=== PATIENT | female | born 1945 | race Caucasian/White ===

== ENCOUNTER → 2022-08-09 12:58 | Outpatient (BNVA) | payer MEDICARE, OTHER, SELFPAY | PROVIDERS: Visit Provider Physician Assistant | DX: M48.061 Spinal stenosis, lumbar region without neurogenic claudication (principal) | CPT/HCPCS: 99202 ==

== ENCOUNTER 2022-10-13 07:22 | Outpatient (REF) | payer MEDICARE, OTHER, SELFPAY ==
--- NOTE | ~2022-10-13 | XR_ITS ---
EXAMINATION: XR KNEE, RIGHT CLINICAL INFORMATION: Right knee pain. COMPARISON: MRI right knee 08/14/2022. TECHNIQUE: Three views of the right knee. FINDINGS: Mild bicompartmental degenerative changes are present with most narrowing seen in the lateral compartment with some sclerosis and mild lateral tibial plateau osteophyte formation. Some mild undulation is present on the posterior patella with a tiny joint effusion. The medial compartment is well preserved. No joint effusion is seen. Marked vascular calcifications are noted. XR/XR knee RT 3V IMPRESSION: Mild bicompartmental degenerative changes with small joint effusion.
== END 2022-10-13 07:23 | disposition home or self-care (01) ==
LOC: HO.HOSX 07:22
PROVIDERS: Visit Provider Orthopaedic Surgery
DX: S83.241A Other tear of medial meniscus, current injury, right knee, initial encounter (principal)
CPT/HCPCS: 73562; 99202

== ENCOUNTER 2022-10-13 13:59 | Outpatient (AMB) | payer MEDICARE, OTHER, SELFPAY ==
--- NOTE | 2022-10-13 14:15 | A.OFFVIS_ITS ---
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 States she sat in a chair that put pressure on her knee on February. Reports she felt pain when she stood up and her pain increased when she applied pressure on knee. The patient denies any pain in her right knee prior to that twisting injury. She has done physical therapy for 12 weeks over the last 6 months which aggravated her pain. She has also had multiple injections in the past. The most recent injection gave her minimal relief. She has tried Tylenol and anti-inflammatory medicines which gave her only mild relief. She states that her right knee will give out several times per day. Of note, the patient is due to undergo her 2nd low back surgery on 10/17/2022. Allergies Penicillin Allergy (Unknown, Uncoded 09/30/22 10:44) Unknown Medication List - Last Reconciled 10/13/22 by Dhaval Huddleston MD alirocumab (Praluent Pen) 75 mg subcut Q2W amlodipine 10 mg PO DAILY aspirin 81 mg PO 4XW atorvastatin 10 mg PO BEDTIME cholecalciferol (vitamin D3) (Vitamin D3) 50 mcg PO DAILY diphenoxylate-atropine 2.5-0.025 mg 1 tab PO DAILY enalapril maleate 20 mg PO BID fluoxetine 10 mg PO QNOON hydrocortisone-iodoquinol 1-1 % appl topical PRN lorazepam 0.5 mg PO DAILY PRN metoprolol succinate ER 25 mg PO BEDTIME multivitamin 1 tab PO DAILY tramadol 25 - 50 mg PO BID PRN vitamin A-vitamin C-vit E-min 1 tab PO 4XW vitamins A,C,F-jzoj-zittfm 2,148 mcg-113 mg-45 mg-17.4mg (PreserVision AREDS) 2 tabs PO DAILY PFSH Medical History (Updated 10/13/22 @ 14:36 by Dhaval Huddleston MD) Arthritis Asthma Cough COVID-19 Depression Diarrhea Elevated cholesterol GERD (gastroesophageal reflux disease) HTN (hypertension) PVD (peripheral vascular disease) Renal artery stenosis Rheumatoid arthritis Spinal stenosis Wet senile macular degeneration Surgical History (Updated 09/30/22 @ 11:05 by Deb Gil RN) History of carotid endarterectomy History of eyelid surgery History of facelift History of hysterectomy History of lumbar fusion Hx of breast reduction, elective Hx of cholecystectomy Social History Are you a primary healthcare liaison to a significant other at home: No Do you presently have visiting nurse or other home services: No Patient Tobacco Use Status: Never used Tobacco Physical Exam Vital Signs: BMI result Body Mass Index 29.2 Const Other: Well-nourished well-developed very friendly female awake alert and oriented x3 in no acute distress Extrem Other: Bilateral lower extremity examination shows good capillary refill, no skin lesions noted, normal sensation light touch Right knee examination shows a mild effusion, mild crepitus with range of motion, tenderness along her medial and lateral joint lines, positive Daniele's test, no instability Results Reviewed Results Reviewed: X-rays of the patient's right knee taken today show mild to moderate diffuse zbigniew nt space narrowing, no acute bony abnormalities MRI of the patient's right knee shows moderate diffuse degenerative changes as well as tearing of her medial and lateral menisci and thickened plica Assessment & Plan Assessment & Plan (1) Tear of medial meniscus of right knee: Code(s): S83.241A - Other tear of medial meniscus, current injury, right knee, initial encounter Plan Ms. Lovett presents with progressively worsening right knee pain and mec hanical symptoms due to early degenerative joint disease as well as tearing of her medial and lateral menisci and plica syndrome. I had a lengthy discussion with the patient regarding the treatment options. At this point she appears to be failing continued non operative treatments. The risks and benefits of right knee arthroscopic surgery were discussed at length with the patient. The patient is considering undergoing right knee arthroscopic surgery later this year. That surgery will most likely involve right knee diagnostic arthroscopy with partial medial and lateral meniscectomies, chondroplasty and plica excision. She will follow up with me once she has recovered from her low back surgery. She will contact me prior to that time should any questions or concerns arise. Feel free to call me at any time should questions regarding her orthopedic management arise. Thank you very much for asking me to see this very friendly patient. I spent 22 minutes in reviewing the patient's records and imaging studies, seeing the patient and documenting in the medical record. Orders: Orders XR knee RT 3V Today M25.561 - Pain in right knee Coding Level of Care Code New Pt Level 2 (07409) Diagnoses Tear of medial meniscus of right knee S83.241A
[2022-10-13 14:27] VITALS: BMI 29.2
== END 2022-10-13 14:35 | disposition home or self-care (01) ==
PROVIDERS: PCP Internal Medicine; Visit Provider Orthopaedic Surgery
DX: S83.241A Other tear of medial meniscus, current injury, right knee, initial encounter (principal)
CPT/HCPCS: 99202

== ENCOUNTER 2022-10-17 06:19 | Inpatient (IN) | payer MEDICARE, OTHER, SELFPAY ==
[2022-10-03 12:24] VITALS: BP 140/62; PULSE 68; RESP 16; O2SAT 96; BMI 30.2
--- NOTE | 2022-10-03 12:37 | HO.ANESPROP2 ---
HPI - Anesthesia Eval Consult details Narrative: 77yo F for L2-L3 Transkambin Lumbar Interbody Fusion No recent illness No CP/SOB with seated aerobics and light weights daily Mild asthma only. Asymptomatic except with extreme weather. No inhaler rx GERD - diet controlled PVD s/p L CEA 2018. [facility] Active Problems Active Problems: All Active Problems (Updated 10/03/22 @ 12:16 by Deb Gil RN) Lumbar stenosis (Acute) Knee pain (Acute) Past Medical History Medical History Arthritis Asthma Cough COVID-19 Depression Diarrhea Elevated cholesterol GERD (gastroesophageal reflux disease) HTN (hypertension) PVD (peripheral vascular disease) Renal artery stenosis Rheumatoid arthritis Spinal stenosis Wet senile macular degeneration Family History Family history of problems with anesthesia: No Surgical History Surgical History History of carotid endarterectomy History of eyelid surgery History of facelift History of hysterectomy History of lumbar fusion Hx of breast reduction, elective Hx of cholecystectomy History of Problems with Anesthesia: No (distant hx of PONV) Social History Social History Household Members: None Housing: House Are you a primary manager medicare marketing to a significant other at home: No Do you presently have visiting nurse or other home services: No Patient Tobacco Use Status: Never used Tobacco Use of substances other than those prescribed or required for medical reasons: No Have you been hit, kicked, punched, or otherwise hurt by someone within the past year? If so, by whom?: No Do you feel safe in your current relationship?: Yes Is there a partner from a previous relationship who is making you feel unsafe now?: No Are you made to feel afraid or neglected: No Are you DNR?: No Advance Directives: No Advance Directives Information Provided: No Advance Directives on File: No Do you have thoughts of harming others: None Do you have a plan to hurt others: No Plan Recently lost weight without trying: No Eating poorly because of decreased appetite: No Nutrition Risks: No Nutritional Risk Patient : No : No Poor oral hygiene: No Meds Allergies Allergy/AdvReac Type Severity Reaction Status Date / Time Penicillin Allergy Mild Hives Uncoded 10/17/22 06:23 Home Medications Medication Instructions Recorded Confirmed Last Taken Type alirocumab 75 mg/mL subcutaneous 75 mg subcut Q2W 08/09/22 10/17/22 10/03/22 History pen injector (Praluent Pen) amlodipine 10 mg tablet 10 mg PO DAILY 08/09/22 10/17/22 10/17/22 History diphenoxylate-atropine 2.5 1 tab PO DAILY 08/09/22 10/17/22 10/17/22 History mg-0.025 mg tablet enalapril maleate 20 mg tablet 20 mg PO BID 08/09/22 10/17/22 10/17/22 History 10 mg fluoxetine 10 mg capsule 10 mg PO QNOON 08/09/22 10/17/22 10/17/22 History hydrocortisone 1 %-iodoquinol 1 % 1 appl topical DAILY PRN Itching 08/09/22 10/17/22 10/16/22 History topical cream lorazepam 0.5 mg tablet 0.5 mg PO DAILY PRN Anxiety 08/09/22 10/17/22 10/03/22 History metoprolol succinate 25 mg 25 mg PO BEDTIME 08/09/22 10/17/22 10/16/22 History tablet,extended release 24 hr tramadol 50 mg tablet 25 - 50 mg PO BID PRN pain 08/09/22 10/17/22 10/15/22 History aspirin 81 mg tablet,delayed 81 mg PO 4XW 09/30/22 10/17/22 10/10/22 History release atorvastatin 10 mg tablet 10 mg PO BEDTIME 09/30/22 10/17/22 10/16/22 History multivitamin 1 tab PO DAILY 09/30/22 10/17/22 10/15/22 History vitamin A-vitamin C-vit E-min 1 tab PO 4XW 09/30/22 10/17/22 10/14/22 History tablet cholecalciferol (vitamin D3) 50 50 mcg PO DAILY 10/03/22 10/17/22 10/14/22 History mcg (2,000 unit) capsule (Vitamin D3) Exam Exam Date and Time: October 03, 2022 1237 Height,Weight and Vital Signs: Height 5 ft 4 in Weight 79.832 kg Last Vital Signs Pulse 68 10/03/22 12:24 Resp 16 10/03/22 12:24 BP 140/62 H 10/03/22 12:24 Pulse Ox 96 10/03/22 12:24 O2 Del Method Room Air 10/03/22 12:24 Pertinent Lab Results Pertinent Lab Results: CBC and BMP from outside facility 06/2022 all WNL Narrative Narrative: EKG 09/2022 Vent. Rate : 062 BPM ? ? Atrial Rate : 062 BPM ?? P-R Int : 138 ms? QRS Dur : 076 ms ? ? QT Int : 408 ms ? ? ? P-R-T Axes : 067 -11 -09 degrees ?? QTc Int : 414 ms ? Normal sinus rhythm Normal ECG No previous ECGs available ? Airway Mallampati Class: III (Small mouth) TM Dist: >3cm Neck ROM: Limited Loose/Missing/Broken Teeth: No (crowned molars) Heart: RRR Lungs: CTAB Assessment and Plan Assessment Anesthesia Assessment: Anesthesia Plan Discussed, Smoking Cess. Discussed and PAT Visit Final Anesthetic Review Family History of Problems with Anesthesia: No History of Problems with Anesthesia: No (distant hx of PONV)
[2022-10-17] VITALS (13 sets, daily range): BP systolic 124–145; BP diastolic 50–75; PULSE 57–72; RESP 14–20; TEMP 35.4–36.9; O2SAT 94–100; BMI 29.2
--- NOTE | ~2022-10-17 | FL_ITS ---
EXAMINATION: XR FLUOROSCOPY WITH IMAGES CLINICAL INFORMATION: L2-L3 lumbar interbody fusion. COMPARISON: None available. TECHNIQUE: Fluoroscopy Supervised By: Lauren. Fluoroscopy Time: 0.6 minutes. Cumulative Dose: 41 mGy. DAP: 0.6 Gycm2. Images: 4. FINDINGS: Images demonstrate posterior fusion hardware in the lumbar spine with rods and bilateral transpedicular screws and disc prosthesis. There is interbody fusion seen at the next more inferior level. FL/FL guidance in OR IMPRESSION: Fluoroscopy guidance for lumbar fusion.
--- OUTSIDE RECORDS SUMMARY | 2022-10-17 06:21 | XMS_ITS | Continuity of Care Document ---
Author Name Unknown Organization [facility] Address [address] [place] [id number]- Care Team Providers Care Opener Name Role Phone Tamera Hunt MD Primary Care Physician Encounter [facility] Date(s): 08/16/22 - 08/23/22 [facility] [address] [place] [id number] [[email or web address]] Attending Physician: Jono Andino MD Admitting Physician: Jono Andino MD Referring Physician: Tamera Hunt MD Allergies, Adverse Reactions, Alerts Substance Reaction Severity Status penicillins Active narcotic analgesics Active Medications amLODIPine 5 mg oral tablet 1 tablet = 5 mg, By Mouth, Daily, 0 Refills, Maintenance, 02/14/22 16:20:00 EST, Partial fill upon patient request if the prescription is for a schedule II opioid drug. Start Date: 02/14/22 Status: Ordered aspirin 81 mg oral tablet 1 tablet = 81 mg, By Mouth, Daily, 0 Refills, Maintenance, 07/09/18 9:24:12 EDT Start Date: 07/09/18 Status: Ordered atropine-diphenoxylate 0.025 mg-2.5 mg oral tablet Refills 0, Maintenance, 07/09/18 9:22:09 EDT Start Date: 07/09/18 Status: Ordered CoQ10 1 capsule, By Mouth, Daily, 0 Refills, Maintenance, 07/09/18 9:25:04 EDT Start Date: 07/09/18 Status: Ordered enalapril 20 mg oral tablet 0 Refills, Maintenance, 07/09/18 9:21:38 EDT Start Date: 07/09/18 Status: Ordered Hydrochlorothiazide = 12.5 mg, By Mouth, Daily, 0 Refills, Maintenance, 12/05/19 10:46:11 EST Start Date: 03/07/19 Status: Ordered Icaps AREDS 1 capsule, By Mouth, Daily, 0 Refills, Maintenance, 07/09/18 9:24:46 EDT Start Date: 07/09/18 Status: Ordered K2 Plus D3 0 Refills, Maintenance, 03/07/19 10:46:41 EST Start Date: 03/07/19 Status: Ordered Lomotil Liquid By Mouth, 4 times a day, 0 Refills, Maintenance, 03/07/19 10:46:35 EST Start Date: 03/07/19 Status: Ordered Magnesium Oxide By Mouth, 0 Refills, Maintenance, 03/07/19 10:46:52 EST Start Date: 03/07/19 Status: Ordered Metoprolol Succinate ER 25 mg oral tablet, extended release 1 tablet = 25 mg, 0 Refills, Maintenance, 02/14/22 16:21:00 EST, Partial fill upon patient request if the prescription is for a schedule II opioid drug. Start Date: 02/14/22 Status: Ordered Metoprolol Succinate ER 25 mg oral tablet, extended release 1 tablet = 25 mg, By Mouth, Daily, 0 Refills, Maintenance, 02/14/22 16:23:00 EST, Partial fill uponpatient request if the prescription is for a schedule II opioid drug. Start Date: 02/14/22 Status: Ordered Multivitamin Daily, 0 Refills, Maintenance, 07/09/18 9:25:50 EDT Start Date: 07/09/18 Status: Ordered Praluent Pen 75 mg/mL subcutaneous solution = 75 mg, Subcutaneous Infusion, every other week, 0 Refills, Maintenance, 02/14/22 16:20:00 EST, Partial fill upon patient request if the prescription is for a schedule II opioid drug. Start Date: 02/14/22 Status: Ordered PROzac 10 mg oral capsule 10 mg, 1, capsule, By Mouth, Daily, Refills 0, Maintenance, 07/09/18 9:23:59 EDT Start Date: 07/09/18 Status: Ordered [place] Oil By Mouth, several days a week, 0 Refills, Maintenance, 07/09/18 9:25:22 EDT Start Date: 07/09/18 Status: Ordered Vitamin D3 = 2,000 International_Units, By Mouth, Daily, 0 Refills, Maintenance, 07/09/18 9:24:30 EDT Start Date: 07/09/18 Status: Ordered Social History Social History Type Response Smoking Status Never (less than 100 in lifetime) entered on: 03/07/19 Sex Note * Ana Bea: PERFORM, SIGN, VERIFY Event Display: Patient Education/Instruction Authored Date: [id number] [facility] *[facility] [address] Clinical Summary Name TONG FORRESTER Age 77 Years 1945 PCP Marilee BUTLER , Tamera Alvarez PCP Visit Date 08/16/2022 06:36:00 Additional Instructions: Scheduled Appointments?? Future Appointments ?No Future Appointments Scheduled Follow-Up Instructions ?? Diagnosis Medications: Please continue your medications until treatment is completed or stopped by your provider. Discuss any questions related to medications with your provider. Medications to Continue with No Changes These medications were not printed or sent to your pharmacy alirocumab (Praluent Pen 75 mg/mL subcutaneous solution) 75 Milligram Subcutaneous Infusion. every other week. Next Dose: Amlodipine (amLODIPine 5 mg oral tablet) 1 tab(s) Oral Daily. Next Dose: Aspirin (aspirin 81 mg oral tablet) 1 tab(s) Oral Daily. Next Dose: Atropine / Diphenoxylate (atropine-diphenoxylate 0.025 mg-2.5 mg oral tablet) Next Dose: Atropine / Diphenoxylate (Lomotil Liquid) Oral 4 times a day. Next Dose: Cholecalciferol (Vitamin D3) 2,000 International Unit Oral Daily. Next Dose: Enalapril (enalapril 20 mg oral tablet) Next Dose: Fluoxetine (PROzac 10 mg oral capsule) 1 capsule Oral Daily. Next Dose: Hydrochlorothiazide 12.5 Milligram Oral Daily. Next Dose: Magnesium Oxide Oral. Next Dose: Metoprolol (Metoprolol Succinate ER 25 mg oral tablet, extended release) 1 tab(s). Next Dose: Metoprolol (Metoprolol Succinate ER 25 mg oral tablet, extended release) 1 tab(s) Oral Daily. Next Dose: Multivitamin Daily. Next Dose: Multivitamin (K2 Plus D3) Next Dose: Multivitamin With Minerals (Icaps AREDS) 1 capsule Oral Daily. Next Dose: Roberta-3 Polyunsaturated Fatty Acids ([place] Oil) Oral. several days a week. Next Dose: Ubiquinone (CoQ10) 1 capsule Oral Daily. Next Dose: Allergy Info:?? narcotic analgesics; penicillins Medications Given This Visit Future Orders ?No future orders Vital Signs Height Weight BMI Blood Pressure / Temperature Pulse Rate Respiratory Rate 02 Sat Mode of Delivery / You can now view a summary of your hospital visit from the comfort of your home through a free online portal called [employer]. [employer] is a website that allows you to securely view your medical information including discharge summary, medications and follow-up visits. ??You can alsosend a secure electronic message to your doctor???s office to request appointments, renew medications or just ask a question. You can enroll at [email or web address] or register during your next office visit. Disclaimer:?? The information provided is of a general nature and is intended to be used in conjunction with the recommendations and advice of your health care practitioner. ??Every effort has been made to ensure that the information provided is accurate and complete at the time it is provided to you however, as your needs change, or, as new ??information becomes available, different or additional instructions may be required. If you have questions, please consult with your primary care provider or pharmacist, as appropriate. ??This information is not intended to serve as substitution for assessment and evaluation by a qualified health care provider. If you do not have a primary care provider, you may find a [facility] provider by calling [email or web address] Link at [phone]. For information about the plan of care including goals and instructions for your diagnosis, please see the patient education orders section of this document. Patient Education Materials?? The content of this educational material or handout may have been modified, supplemented, or adapted from its original content and format to support your individualized medical care. Patient Care team information Care Team Personnel Name: Tamera Hunt MD Position: [facility] Outreach Member Role: PCP Address: Address: [address] [place] [address] Care Team Related Persons Name: AIDEN ROBERTS
--- OUTSIDE RECORDS SUMMARY | 2022-10-17 06:21 | XMS_ITS | Continuity of Care Document ---
Author Name Unknown Organization [facility] Address [address] [place] [id number]- Care Team Providers Care Heel Blacker Name Role Phone Tamera Hunt MD Primary Care Physician Encounter [facility] Date(s): 02/14/22 - 02/21/22 [facility] [address] [place] [id number] Attending Physician: Jono Andino MD Admitting Physician: [...] mg, By Mouth, Daily, 0 Refills, Maintenance, 03/07/19 10:46:11 EST Start Date: 03/07/19 Status: Ordered [...] 9:23:59 EDT Start Date: 07/09/18 Status: Ordered [place] Oil By Mouth, several days a week, 0 Refills, Maintenance, 07/09/18 9:25:22 EDT Start Date: 07/09/18 Status: Ordered Vitamin D3 = 2,000 International_Units, By Mouth, Daily, 0 Refills, Maintenance, 07/09/18 9:24:30 EDT Start Date: 07/09/18 Status: Ordered Vital Signs Most recent to oldest [Reference Range]: 1 2 Height 162 cm (02/14/22 4:16 PM) 162 cm (02/14/22 4:13 PM) Weight 64.86 kg (02/14/22 4:13 PM) Oxygen Saturation [94-100 %] 98 % (02/14/22 4:13 PM) Pulse Rate [55-90 bpm] 88 bpm (02/14/22 4:13 PM) Body Mass Index [18.5-24.99 kg/m2] 24.71 kg/m2 (02/14/22 4:13 PM) Blood Pressure [90-138/55-84 mm Hg] 172/ 84mm Hg *H* (02/14/22 4:16 PM) 168/78mm Hg *H* (02/14/22 4:13 PM) Mode of Delivery (Oxygen) Room air (02/14/22 4:13 PM) Blood pressure sites Arm, left (02/14/22 4:16 PM) Arm, right (02/14/22 4:13 PM) Dry Weight 64.86 kg (02/14/22 4:13 PM) Weight Obtained Via Patient/family state d (02/14/22 4:13 PM) Dry Weight Obtained Via Patient/family s tated (02/14/22 4:13 PM) Social History Social History Type Response Smoking Status Never (less than 100 in lifetime) entered on: 03/07/19 Sex Patient Care team information Care Team Personnel Name: Tamera Hunt MD Position: [facility] Outreach Member Role: PCP Address: Address: [address] [place] [id number] Care Team Related Persons Name: AIDEN ROBERTS
--- OUTSIDE RECORDS SUMMARY | 2022-10-17 06:21 | XMS_ITS | Continuity of Care Document ---
Author Name Unknown Organization [facility] Address [address] [address]- Care Team Providers Care Fire Investigation Lieutenant Name Role Phone Tamera Hunt MD Primary Care Physician Encounter [facility] [place] Date(s): 08/02/22 - 09/01/22 [facility] [address] [address]- Attending Physician: Francheska Alston Admitting Physician: Francheska Alston Referring Physician: Admtr ArRosalie Allergies, Adverse Reactions, Alerts Substance Reaction Severity [...] 9:23:59 EDT Start Date: 07/09/18 Status: Ordered [place] Oil By Mouth, several days a week, [...] Team Personnel Name: Tamera Hunt MD Position: S Outreach Member Role: PCP Address: Address: [address] [place] [address]- Care Team Related Persons Name: AIDEN ROBERTS
--- OUTSIDE RECORDS SUMMARY | 2022-10-17 06:21 | XMS_ITS | Continuity of Care Document ---
Author Name Unknown Organization [facility] Address [address] [address]- Care Team Providers Care Nursing Specialist Name Role Phone Tamera Hunt MD Primary Care Physician Encounter [facility] Date(s): 08/02/22 - 08/09/22 [facility] [address] [address]- Attending Physician: Jono Andino MD Admitting Physician: [...] 9:23:59 EDT Start Date: 07/09/18 Status: Ordered [place] [employer] By Mouth, several days a week, 0 Refills, Maintenance, 07/09/18 9:25:22 EDT Start Date: 07/09/18 Status: Ordered Vitamin D3 = 2,000 International_Units, By Mouth, Daily, 0 Refills, Maintenance, 07/09/18 9:24:30 EDT Start Date: 07/09/18 Status: Ordered Social History Social History Type Response Smoking Status Never (less than 100 in lifetime) entered on: 03/07/19 Sex US.doppler Carotid arteries - bilateral * Event Display: VL Carotid Duplex Scan Bilat Authored Date: [id number] Status:Open Carotid Duplex Study Demographics Procedure Information Patient name: USAMA FORTUNE Procedure date: 08/02/2022 1:44 PM Corporate Proc. sub type: Cerebral: Carotid, Carotid Duplex Scan Bilateral. Gender: Female Accession No: [id number] Date of : 1945 Account No: [id number] Age: 77 year(s) Patient status: Routine Admit Status: Outpatient Procedure Staff Probe: L9-3 Attending Physician: Jono Andino MD Technical quality: Adequate visualization Ordering physician: Jono Andino MD Facility: [facility] Referring Physician: Jono Andino MD Fruit Harvest Worker: Marlee Dutta RVT [facility] Study location: [facility] Interpreting physician: Abraham Mar MD Procedure consent obtained: No Indications Carotid stenosis and Post-op for carotid revascularization. Carotid Procedure Findings Right Left Location PSV (cm/s) EDV (cm/s) Plaque Characteristics PSV (cm/s) EDV (cm/s) Plaque Characteristics Prox CCA 73.6 5.91 83.8 11.3 Calcified Mid CCA Calcified Dist CCA 76.8 12.4 107 14.5 Bulb 225 23.9 Calcified 117 15.4 Irregular Prox ICA 135 15.7 Calcified 70.8 10.8 Mid ICA 122 14.8 51.3 12.3 Dist ICA 148 17.5 101 11.8 Prox ECA 103 28.3 Calcified 141 6.87 Heterogeneous Vertebral 52.6 6.87 60.6 9.88 Prox Subclavian 109 0 126 107 Right ICA/CCA ratio: 1.93 Right verterbral flow: Antegrade Left ICA/CCA ratio: 0.94 Left verterbralflow: Antegr Study Comments Left CEA 08/2020 Physician Conclusions Summary: Right Side: Mild atherosclerosis that is not hemodynamically significant at 1-49% stenosis in the Internal Carotid Artery, but there are elevated velocities at the Bulb consistent with a 50-79% stenosis. Antegrade flow in the Vertebral Artery. Multiphasic flow is seen in the Subclavian Artery. Left Side: Patent Internal Carotid Artery status post endarterectomy . In comparison to the previous study, performed on 2021, velocities are unchanged . Antegrade flow seen in the Vertebral Artery. Triphasic flow in the Subclavian artery. * Event Display: VL Carotid Duplex Scan Bilat Authored Date: [id number] Cardiology * Event Display: VL Ankle/Brachial Indices Authored Date: Status:Open Lower Arterial Plethysmography Demographics Procedure Information Patient name: USAMA FORTUNE Procedure date: 08/02/2022 2:11 PM Corporate Proc. sub type: Extremities Arteries: Lower Arterial Plethysmography, PVR Limited Single Gender: Female Level. Date of : 1945 Accession No: [id number] Age: 77 year(s) Account No: [id number] Patient status: Routine Procedure Staff Admit Status: Outpatient Attending Physician: Jono Andino MD Facility: [facility] Card Ordering physician: Jono Andino MD Referring Physician: Jono Andino MD Study location: [facility] Fruit Harvest Worker: Marlee Dutta RVT [facility] Procedure consent obtained: Interpreting physician: Abraham Mar MD No Indications Claudication. Physician Conclusions Summary: Right side: The Ankle / Brachial Index on the right is 0.94, consistent with mild arterial insufficiency. The PVR waveform is moderately abnormal, exhibiting a decreased amplitude. Left side: The Ankle / Brachial Index on the left is 0.68 , consistent with moderate arterial insufficiency. The PVR waveform is moderately abnormal, exhibiting a decreased amplitude. There are no prior exams available for comparison. Snapshots * Event Display: VL Ankle/Brachial Indices Authored Date: Patient Care team information Care Team Personnel Name: Tamera Hunt MD Position: [facility] Outreach Member Role: PCP Address: Address: [address] [place] [id number]- Care Team Related Persons Name: AIDEN ROBERTS
--- OUTSIDE RECORDS SUMMARY | 2022-10-17 06:21 | XMS_ITS | Continuity of Care Document ---
Author Name Unknown Organization [facility] Address [address] [facility] [address] [address] [place] [address]- Care Team Providers Care Lawn And Garden Technician Name Role Phone Tamera Hunt MD Primary Care Physician Encounter 08/16/21 - 08/23/21 [facility] [address], [address] [address]- Attending Physician: Rachel Villegas MD Admitting Physician: Laura Hernandez Referring Physician: Rachel Villegas MD Allergies, Adverse Reactions, Alerts Substance Reaction Severity Status penicillins Active narcotic analgesics Active Social History Social History Type Response Smoking Status Never (less than 100 in lifetime) entered on: 03/07/19 Sex
--- OUTSIDE RECORDS SUMMARY | 2022-10-17 06:21 | XMS_ITS | Continuity of Care Document ---
Author Name Unknown Organization [facility] Address [address] [place] [address]- Care Team Providers Care Acute Care Physician Name Role Phone Tamera Hunt MD Primary Care Physician Encounter [facility] Date(s): 02/14/22 - 03/16/22 [facility] [address] [place], [place] [address] Attending Physician: Francheska Alston Admitting Physician: Francheska Alston Referring Physician: Francheska Alston Referring Physician: Imer Sauer Referring Physician: Imer Sauer Allergies, Adverse Reactions, Alerts Substance Reaction Severity [...] 9:23:59 EDT Start Date: 07/09/18 Status: Ordered [place] [employer] By Mouth, several days a week, [...] S Outreach Member Role: PCP Address: Address: [address] [place] [address]- Care Team Related Persons Name: AIDEN ROBERTS
--- NOTE | 2022-10-17 06:35 | PC.NURSE ---
Preop IV Vanco dose of 1000mg verified with Gonzalo from Pharmacy.
[2022-10-17] MEDS: vancomycin HCL 1,000 MG in 0.9 % Sodium Chloride 250 ML 270 MG IV ×2 (06:57→18:33)
[2022-10-17] MEDS: Lactated Ringers 1,000 ML 100 ML IVCONT (06:57)
[2022-10-17] MEDS: methocarbamoL 750 MG TABLET PO (07:02)
[2022-10-17] MEDS: Gabapentin 300 MG CAPSULE PO ×2 (07:02→20:54)
--- NOTE | 2022-10-17 07:10 | MHC.SHP ---
Pre-Procedural Eval Section A Date of Service: 10/17/22 The patient is an INPATIENT: No The History & Physical has been completed within 30 days and I have reviewed it.: No Section B Chief Complaint: bilateral leg pain Details of Present Illness: bialteral leg pain due to L2-3 adjacent deg disc disease Relevant Family History (Specify if Yes): No Relevant Social History: None Present Medications: see Short Stay Collaborative assessment Medical History: No relevant PMH History of Previous Operations: Relevant previous surgery/procedure and date(s) (previous lumbar fusion) Allergies: Allergies Allergy/AdvReac Type Severity Reaction Status Date / Time Penicillin Allergy Mild Hives Uncoded 10/17/22 06:23 Review of Systems Sugical H&P ROS: Negative: Constitution, Cardiovascular, Respiratory, Neurological, Psychiatric, Hem-Onc, Allergic/Immunologic, Gastrointestinal, Genitourinary, Musculoskeletal, Integumentary, Endocrine and Eyes/Ears/Nose/Throat Exam Surgical H&P Exam: Not Evaluated: HEENT, Not Evaluated: Heart, Not Evaluated: Lungs, Not Evaluated: Extremities, Not Evaluated: Abdomen, Not Evaluated: Skin and Not Evaluated: Neurological Plan Diagnosis/Plan: Unchanged I have reviewed the history and physical and performed a pertinent physical examination on my patient. No changes have occurred unless specified. L2-3 Transkambin fusion (OLLIF) Time Spent With Patient Time: Total time managing care of this patient today ___10_ minutes.
--- NOTE | 2022-10-17 07:39 | HO.ANESPROP2 ---
[facility] Active Problems Active Problems: All Active Problems (Updated 10/13/22 @ 14:36 by Dhaval Huddleston MD) Tear of medial meniscus of right knee (Acute) Right knee pain (Acute) Lumbar stenosis (Acute) Knee pain (Acute) Past Medical History Medical History Arthritis Asthma Cough COVID-19 Depression Diarrhea Elevated cholesterol GERD (gastroesophageal reflux disease) HTN (hypertension) PVD (peripheral vascular disease) Renal artery stenosis Rheumatoid arthritis Spinal stenosis Wet senile macular degeneration Functional capacity: independent ambulation Family History Family history of problems with anesthesia: No Surgical History Surgical History History of carotid endarterectomy History of eyelid surgery History of facelift History of hysterectomy History of lumbar fusion Hx of breast reduction, elective Hx of cholecystectomy History of Problems with Anesthesia: No (distant hx of PONV) Social History Social History Are you a primary critical care physician to a significant other at home: No Do you presently have visiting nurse or other home services: No Patient Tobacco Use Status: Never used Tobacco Use of substances other than those prescribed or required for medical reasons: No Have you been hit, kicked, punched, or otherwise hurt by someone within the past year? If so, by whom?: No Are you DNR?: No Advance Directives: No Advance Directives Information Provided: No Advance Directives on File: No Recently lost weight without trying: No Eating poorly because of decreased appetite: No Nutrition Risks: No Nutritional Risk Patient : No : No Poor oral hygiene: No Meds Allergies Allergy/AdvReac Type Severity Reaction Status Date / Time Penicillin Allergy Mild Hives Uncoded 10/17/22 06:23 Active Medications: Current Medications Lactated Ringer's (Lr) 1,000 mls @ 100 mls/hr IVCONT .Q10H MAURO Last Admin: 10/17/22 06:57 Dose: 100 mls/hr Home Medications Medication Instructions Recorded Confirmed Last Taken Type alirocumab 75 mg/mL subcutaneous 75 mg subcut Q2W 08/09/22 10/17/22 10/03/22 History pen injector (Praluent Pen) amlodipine 10 mg tablet 10 mg PO DAILY 08/09/22 10/17/22 10/17/22 History diphenoxylate-atropine 2.5 1 tab PO DAILY 08/09/22 10/17/22 10/17/22 History mg-0.025 mg tablet enalapril maleate 20 mg tablet 20 mg PO BID 08/09/22 10/17/22 10/17/22 History 10 mg fluoxetine 10 mg capsule 10 mg PO QNOON 08/09/22 10/17/22 10/17/22 History hydrocortisone 1 %-iodoquinol 1 % 1 appl topical DAILY PRN Itching 08/09/22 10/17/22 10/16/22 History topical cream lorazepam 0.5 mg tablet 0.5 mg PO DAILY PRN Anxiety 08/09/22 10/17/22 10/03/22 History metoprolol succinate 25 mg 25 mg PO BEDTIME 08/09/22 10/17/22 10/16/22 History tablet,extended release 24 hr tramadol 50 mg tablet 25 - 50 mg PO BID PRN pain 08/09/22 10/17/22 10/15/22 History aspirin 81 mg tablet,delayed 81 mg PO 4XW 09/30/22 10/17/22 10/10/22 History release atorvastatin 10 mg tablet 10 mg PO BEDTIME 09/30/22 10/17/22 10/16/22 History multivitamin 1 tab PO DAILY 09/30/22 10/17/22 10/15/22 History vitamin A-vitamin C-vit E-min 1 tab PO 4XW 09/30/22 10/17/22 10/14/22 History tablet cholecalciferol (vitamin D3) 50 50 mcg PO DAILY 10/03/22 10/17/22 10/14/22 History mcg (2,000 unit) capsule (Vitamin D3) Exam Exam Date and Time: October 17, 2022 0739 Height,Weight and Vital Signs: Height 5 ft 4 in Weight 77.111 kg Last Vital Signs Temp 98.5 F 10/17/22 06:33 Pulse 65 10/17/22 06:33 Resp 16 10/17/22 06:33 BP 126/58 L 10/17/22 06:33 Pulse Ox 96 10/17/22 06:33 O2 Del Method Room Air 10/17/22 06:33 Airway Mallampati Class: II TM Dist: >3cm Neck ROM: Full Denture: Upper and Lower Heart: RRR Lungs: CTA Assessment and Plan Final Anesthetic Review Family History of Problems with Anesthesia: No History of Problems with Anesthesia: No (distant hx of PONV) ASA Class: III Final Preanesthetic Review: Meds/Allgs Chart Reviewed, Consent Obtained/Reviewed and Anes Risks/Benef Reviewed Patient Risk: Intermediate Procedure Risk: Intermediate Anesthetic Plan Anesthetic Plan: GA Disposition: Standard PACU
[2022-10-17] MEDS: Acetaminophen 1,000 MG/100 ML PIGGYBACK 400 MG IV ×3 (08:10→20:53)
[2022-10-17] MEDS: Ketorolac Tromethamine 15 MG/ML VIAL IVPUSH ×3 (09:45→23:54)
--- NOTE | 2022-10-17 10:42 | P.OP_ITS ---
Operative Note Operative Note Date of Service: 10/17/22 Narrative: Preoperative Diagnosis: (1) L2-3 adjacent degenerative disc disease with spinal stenosis. Previous L3- 4 fusion Procedure: 1) L2-3 oblique lateral lumbar interbody fusion with discectomy, preparation of the endplates and placement of a bullet cage packed with allograft, anterior to the transverse process and modified prone position, with intraoperative biplanar fluoroscopy imaging and electrophysiological monitoring 2) removal L3-4 posterior instrumentation; insertion L2-3posterior minimally invasive pedicle screw placement and posterior lateral instrumentation and fusion with electrophysiological monitoring Consent Informed Consent was obtained for this operation. I have explained the nature, purpose and benefits of the operation. I have discussed the risks and benefit of the operation including possible complications or adverse events with patient/family. Alternative(s) were discussed with the patient with their relative benefits and risks as well as the consequences of not accepting the operation were included in obtaining consent. Surgeon: MIKE RIZZO MD, PHD Procedure Assisted By: [] Description of Procedure: This 77-year-old female previously underwent an L3-4 lumbar fusion in another institution. She presents with adjacent degenerative disc disease L2-3 and moderate to severe spinal stenosis. The patient was offered an oblique lumbar lateral interbody fusion followed by a posterior lateral instrumented fusion L2- 3 with removal of the L3-4 posterior instrumentation and insertion of L2-3 posterior instrumentation. The procedure and complications were explained and the patient was consented. The patient was brought to the operating room and endotracheally intubated. The patient was put in a prone position on the Isaac spine table. 2C arms were installed for fluoroscopy. Prepping and draping was done followed by timeout. The landmarks, including spinal processes, transverse processes, disc space, endplates and pedicles are identified and marked. The following steps are taken for the L2-3level: Cage size 12 mm high and 30 mm long titanium . A small incision was made superior to the mid iliac crest following by opening of the muscle fascia. and then using biplanar fluoroscopy visualization, under electrophysiological monitoring and stimulation, we introduced an electrophysiological probe through the retroperitoneal space into the desired disc anterior to the transverse process and then passed it into the disc space after finding a silent window. The sleeve was retained and the probe was removed, then the K wire was passed sequentially into the disc space. A dilating tube was then passed along the same route. Following this, a working channel was manually held in position while a series of disc cleaning tools were passed through the channel to remove the affected disc under clear and direct biplanar fluoroscopic visualization, decompress the nerve roots and equal corticated vertebral endplates at this segment. Arthrodesis of the intervertebra l space for an anterior retroperitoneal exposure and application of intervertebral biomechanical device was then accomplished by using the working channel that had been placed into the retroperitoneal space anterior to the transverse process. After adequate decompression and preparation of the endplates, we then put allograft anterior into the disc space followed by a titanium interbody spacer, which is packed tightly with allograft bone for stabilization and arthrodesis of the anterior vertebral space and inserted the cage into the midportion of the intervertebral disc. This again was done on the biplanar fluoroscopic visualization. All bone was confined to the borders of the disc space. Then I made 2 paramedian incisions over the previous placed instrumentation. I exposed the previous instrumentation. The locking caps were removed followed by removal of the rods. The than 4 pedicle screws were removed from L3 and L4 and new L3 pedicle screws were inserted with the following diameters 6.5 x 40 mm on the left side and a 6.5 x 45 mm on the right side. The following steps are then taken for the L2 level: Bilateral L2 pedicle screws with a diameter of 5.5 x 40 mm. 2C arms were installed for fluoroscopy. A left paramedian incision was made lateral from the L2 pedicle. The Pediguard tap was used to create a transpedicular trajectory into the vertebral body. The K wire was inserted. The steps were repeated for the right L2 pedicle, A specially designed instrument was passed over the K wires to decorticate the posterior lateral gutter. Bilaterally a 50 mm cristina was inserted and locked down with locking caps. Final x-rays and AP and lateral projection showed good position of the interbody device and instrumentation. Allograft was laid down in the posterior lateral gutter to complete the posterior lateral fusion. The paramedian incisions and the incision in the flank were closed in 2 layers. Steri-Strips were used to approximate the incisions. An OpSite with Tegaderm was used to cover the incision. All sponge and needle counts were correct. The patient was extubated and transported in a stable condition to the recovery room. This procedure was done with the aid of a physican's political science research assistant as a qualified resident was not available. The physician political science research assistant was critical for the following aspects of surgery : Closure of the incisions. Anesthesia: General Estimated Blood Loss (ml): 30 ml Specimen: None Duration of Surgery: 2 hours Postoperative Plan: Admit to floor for monitoring
[2022-10-17] MEDS: HYDROmorphone HCl 1 MG/ML SYRINGE IVPUSH (11:15)
[2022-10-17] MEDS: ondansetron HCL 4 MG/2 ML VIAL IVPUSH (14:20)
--- NOTE | 2022-10-17 14:41 | PHA.MEDREC ---
Pharmacy Consult ? Medication Reconciliation Pharmacy has completed the medication reconciliation. Confirmed med rec entered by nursing and clarified alirocumab and enalapril dosing with patient.
--- NOTE | 2022-10-17 18:38 | PC.NURSE ---
Pt assisted OOB to commode with use of walker. Took a few steps at bedside. Pt unable to void on commode. Straight cathed for 600ml betty urine.
[2022-10-17] MEDS: Famotidine 20 MG TABLET PO (20:54)
[2022-10-17] MEDS: Metoprolol Succinate ER 25 MG TAB.ER.24H PO (20:54)
[2022-10-17] MEDS: Enalapril Maleate 10 MG TABLET 20 MG PO (22:17)
[2022-10-17] MEDS: Atorvastatin Calcium 10 MG TABLET PO (22:19)
[2022-10-18 00:20] VITALS: BP 132/59; PULSE 72; RESP 19; TEMP 36.3; O2SAT 99
--- NOTE | 2022-10-18 01:05 | PC.NURSE ---
12 am pt bladder scanned for 249 cc.pt oob to commode to try and void and was unable to.pt ambulated to the bathroom to see if she could go on the toilet but still was not able to void so she was st.cathed for 300 cc yellow urine.dressing on right and middle back with bloody staining so they were both changed.
[2022-10-18] MEDS: Acetaminophen 1,000 MG/100 ML PIGGYBACK 400 MG IV ×2 (02:10→08:40)
[2022-10-18 04:08] VITALS: BP 121/60; PULSE 62; RESP 19; TEMP 36.1; O2SAT 98
[2022-10-18 06:00] VITALS: BP 135/65; PULSE 64; RESP 18; TEMP 36.2; O2SAT 96
--- NOTE | 2022-10-18 06:05 | PC.NURSE ---
pt ambulated to bathroom to attempt to void and was not able to.pt bladder scanned for 524.f/c inserted and drained 600cc.
[2022-10-18] MEDS: Ketorolac Tromethamine 15 MG/ML VIAL IVPUSH ×2 (06:11→11:45)
--- NOTE | 2022-10-18 07:36 | PM.DS ---
DS: Providers Provider Date of Service: 10/18/22 Date of admission: 10/17/22 06:19 Date of discharge: 10/18/22 Primary care physician: Tamera Hunt MD DS: Diagnosis Discharge Diagnosis (1) Status post lumbar and lumbosacral fusion by anterior technique: Status: Acute DS: Summary Hospital Course Hospital Course: patient underwent an uncomplicated L2-3 oblique lateral lumbar interbody fusion with removal of L3-4 instrumentation and insertion of L2-3 posterior instrumentation on 10/17/2022. She is ambulating with assistance. No neurological deficits. The wounds are dry and clean. The main problem is that she is unable to void for which she had several straight caths tonight with the last 1 having a 600 cc residual after which a Pennington catheter was placed. Apparently, the patient is known with urinary retention and she was recently evaluated by a urologist. The Pennington catheter was discontinued this morning. We will do another trial and ice she will be discharged with a Pennington catheter Time spent discussing smoking cessation with patient: more than 10 minutes Status at Discharge Functional status at discharge: independent ambulation Overall status at discharge: patient is progressing back to baseline Time Spent with Patient Time attestation: Total time managing care of this patient today __ 15__ minutes. Discharge coordination time: Less than 30 minutes Quality: Safe Use of Opioids Does Pt have an Active Cancer Diagnosis on the Problem List?: No Quality: Stroke Does the patient have a stroke diagnosis?: No Physical Exam Vital Signs: Vital Signs: Last Vital Signs Temp 97.1 F 10/18/22 06:00 Pulse 64 10/18/22 06:00 Resp 18 10/18/22 06:00 BP 135/65 10/18/22 06:00 Pulse Ox 96 10/18/22 06:00 O2 Del Method Room Air 10/18/22 06:00 O2 Flow Rate 3 10/17/22 20:29 BMI result Body Mass Index 29.2 Discharge Plan Discharge Anticipated Discharge Date/Time: 10/18/22 07:49 Patient Disposition: Home, Self-Care Discharge Diagnosis: status post L2-3 oblique lumbar lateral interbody fusion Referrals: Tamera Hunt MD [Primary Care Provider] - 1 Week Discharge Medications: New oxycodone 5 mg tablet 5 mg PO Q6H PRN (Reason: pain) Qty: 30 0RF Rx Instructions: Partial Fill upon patient request. gabapentin 300 mg capsule 300 mg PO TID Qty: 30 0RF Continued atorvastatin 10 mg Tablet 10 mg PO BEDTIME multivitamin Tablet 1 tab PO DAILY Ocuvite Tablet 1 tab PO 4XW aspirin 81 mg Tablet,Delayed Release (Dr/Ec) 81 mg PO 4XW cholecalciferol (vitamin D3) [Vitamin D3] 50 mcg (2,000 unit) Capsule 50 mcg PO DAILY Rx Instructions: 1-2 tabs diphenoxylate-atropine 2.5-0.025 mg tablet 1 tab PO DAILY metoprolol succinate 25 mg tablet extended release 24 hr 25 mg PO BEDTIME enalapril maleate 20 mg tablet 20 mg PO BID fluoxetine 10 mg capsule 10 mg PO QNOON Praluent Pen 75 mg/mL pen injector 75 mg subcut Q2W lorazepam 0.5 mg tablet 0.5 mg PO DAILY PRN (Reason: Anxiety) amlodipine 10 mg tablet 10 mg PO DAILY hydrocortisone-iodoquinol 1-1 % cream 1 appl topical DAILY PRN (Reason: Itching) Discontinued tramadol 50 mg tablet 25 - 50 mg PO BID PRN (Reason: pain) Discharge Orders: Discharge Order (Routine); Ordered 10/18/22 Ordered By: Miguel Aguilar Activity on Discharge: As tolerated Stand Alone Forms: Patient Portal Discharge page Activity Restrictions/Additional Instructions: After your spinal surgery we ask you to observe the following restrictions/guidelines: Activity: It is normal to feel some discomfort as you increase your activity, but that will improve with time. We ask you avoid heavy lifting or acitivities that cause pain. As a general rule, 8lbs is a safe limit for lifting right after surgery. Walk as much as you feel comfortable but not to exhaustion. You will feel extra tired the first few days after surgery. Stay well hydrated. It is OK to walk up and down stairs You may return to driving when you are off narcotics (such as vicodin, oxycodone, dilaudid, etc), and you are back to normal functional capacity. If you have any concerns please check with office before driving. Return to work is specific to each patient and each surgery, so please speak with your doctor/PA at first follow up. Please bring paperwork such as FMLA at that time if you need it filled out. Medications: We will give you a short supply of narcotics after surgery (usually one weeks worth). If you need more please call the office but do not use more than prescribed. You will need to give our office 48 hours notice if you need narcotics refilled and we do not fill narcotics on weekends or evenings. If you are on a narcotic, it is a good idea to take a stool softener such as colace or senna to avoid constipation If you take blood thinner such as aspirin, Plavix, Coumadin, Effient, Eliquis etc for conditions such as Afib, DVT, Pulmonary embolus, coronary disease, stents etc please speak with your surgeon about specific details as to when you can resume these medications. You can resume NSAIDs on post op day 1 (eg: Motrin, Naproxen, etc). Follow up: Please call the office, , after surgery to arrange a 3 week follow up for wound check. Wound Care: You may remove your dressing on the first day after surgery. You may leave open to air. Please do not remove the steri strips underneath. they will fall off on their own in one week. IT IS NORMAL FOR THE WOUND TO OOZE OR BE BLOODY FOR A FEW DAYS AFTER SURGERY. IF THIS HAPPENS JUST PLACE NEW DRESSING OVER IT TO AVOID STAINING CLOTHES. You may shower on post op day # 1 We ask that you do not let the water soak the wound. If it does get wet, just towel dry lightly. Please do not scrub your incision or place any type of chemical/ointment on the wound. No tub baths, pools or jacuzzis for one month. If you have any leaking or redness from your wound, or fevers, please call office Care Plan Goals: home Health Concerns: none Plan of Treatment: none Assessment: stable
--- NOTE | 2022-10-18 07:52 | P.F2F_ITS ---
Service Date Service Date: 10/18/22 Encounter Date of encounter: 10/18/22 Reasons for Services Signs and symptoms assessed: status post lumbar fusion. Residual pain Reason for physical therapy: home safety and mobility Homebound: Leaving the home is medically contraindicated at this time without the asist of a device and/or another person due th the listed conditions above and below. Reason homebound: unsteady gait / fall risk Certification: Based on the above findings, I certify that this patient is confined to the home and needs intermittent group home care, physical therapy and/or speech therapy, or continues to need occupational therapy. The patient is under my care, and I have initiated the establishment of the plan of care. The patient will be followed by a physician who will periodically review the plan of care. Time Spent With Patient Time: Total time managing care of this patient today ____ minutes. 10
[2022-10-18] MEDS: Enalapril Maleate 10 MG TABLET 20 MG PO (08:36)
[2022-10-18] MEDS: Multivitamin TABLET 1 TAB PO (08:36)
[2022-10-18] MEDS: Famotidine 20 MG TABLET PO (08:36)
[2022-10-18] MEDS: Cholecalciferol (Vitamin D3) 25 MCG TABLET 50 MCG PO (08:36)
[2022-10-18] MEDS: Gabapentin 300 MG CAPSULE PO (08:36)
[2022-10-18] MEDS: Docusate Sodium 100 MG CAPSULE PO (08:37)
[2022-10-18] MEDS: amLODIPine Besylate 10 MG TABLET PO (08:37)
[2022-10-18] MEDS: Diphenoxylate/Atrop 2.5/0.025 TABLET 1 TAB PO (08:38)
--- NOTE | 2022-10-18 08:47 | MHC.CM.PN ---
met with pt who is dcd pt is independent has own ride home dgter is staying with her till linda tello ordered vna
--- NOTE | 2022-10-18 11:27 | HO.POSTANES ---
Post Anesthesia Evaluation Post Anesthesia Evaluation Date of Service: 10/18/22 Vital Signs: Vital Signs Temp Pulse Resp BP Pulse Ox O2 Del Method 10/18/22 06:00 97.1 F 64 18 135/65 96 Room Air 10/18/22 04:08 97 F 62 19 121/60 98 Room Air 10/18/22 00:20 97.3 F 72 19 132/59 L 99 Room Air Anesthesia: General Endotracheal-GETA Mental Status: Awake Pain Control: Satisfactory Nausea/Vomiting: None Hydration: Adequate Anesthesia-Related Issues: No Anes. Related Issues
[2022-10-18] MEDS: FLUoxetine HCl 10 MG CAPSULE PO (11:44)
[2022-10-18 14:50] VITALS: BP 158/72; PULSE 58; RESP 20; TEMP 36.5; O2SAT 98
--- NOTE | 2022-10-18 15:37 | PC.NURSE ---
Pt unable to void today since douglas catheter was removed. Per Dr. Aguilar, place douglas catheter and D/C patient home. His office will book urology appointment for patient, for catheter to be removed by urologist.
== END 2022-10-18 15:40 | disposition home health service (06) | DRG 460 ==
LOC: HO.SSSA 07:12 → HO.S3 11:22
PROVIDERS: Admitting Provider Neurological Surgery; PCP Internal Medicine; Visit Provider Neurological Surgery
PROC: 0SG00A0 Fusion of Lumbar Vertebral Joint with Interbody Fusion Device, Anterior Approach, Anterior Column, Open Approach (ICD-10-PCS; principal; 2022-10-17 07:30)
DX: M51.36 Other intervertebral disc degeneration, lumbar region (principal); M48.061 Spinal stenosis, lumbar region without neurogenic claudication; J45.909 Unspecified asthma, uncomplicated; I10 Essential (primary) hypertension; Z88.0 Allergy status to penicillin; Z79.899 Other long term (current) drug therapy
CPT/HCPCS: 93005; 97116; 97162; 97530; C1713; C1758; J0131; J1100; J1170; J1885; J2250; J2370; J2371; J2405; J3010; J3370; L8699

== ENCOUNTER → 2022-10-17 06:19 | Outpatient (BNV) | payer MEDICARE, OTHER, SELFPAY ==
--- NOTE | 2022-10-20 14:58 | ...WebTmpl.AM.PHNO ---
Nursing Note VNA to add OT (occupational therapy) VNA to add fdc for douglas catheter management, monthly douglas catheter change, with 16 swedish 10mm balloon (may change PRN complications), VNA to flush with 30-60cc normal saline of sterile water for increased sediment or blockage.
== END ==
PROVIDERS: Admitting Provider Neurological Surgery; PCP Internal Medicine; Visit Provider Neurological Surgery
DX: M51.36 Other intervertebral disc degeneration, lumbar region (principal); M48.061 Spinal stenosis, lumbar region without neurogenic claudication
CPT/HCPCS: 20930; 22558; 22612; 22849; 22853; 63056; 99499; G0180

== ENCOUNTER → 2022-10-20 15:07 | Outpatient (BNV) | payer MEDICARE, OTHER, SELFPAY ==
--- NOTE | 2022-10-20 15:07 | A.OFFVIS_ITS ---
Intake Intake Visit Reasons: Amb Documentation Allergies Penicillin Allergy (Mild, Uncoded 10/17/22 06:23) Hives PFSH Medical History Arthritis Asthma Cough COVID-19 Depression Diarrhea Elevated cholesterol GERD (gastroesophageal reflux disease) HTN (hypertension) PVD (peripheral vascular disease) Renal artery stenosis Rheumatoid arthritis Spinal stenosis Wet senile macular degeneration Surgical History History of carotid endarterectomy History of eyelid surgery History of facelift History of hysterectomy History of lumbar fusion Hx of breast reduction, elective Hx of cholecystectomy Social History Household Members: None Housing: House Are you a primary manager long term care to a significant other at home: No Do you presently have visiting nurse or other home services: No Patient Tobacco Use Status: Never used Tobacco service: No Assessment & Plan Assessment & Plan (1) Status post lumbar and lumbosacral fusion by anterior technique: Code(s): Z98.1 - Arthrodesis status Plan Lilian Lovett ??Female : 1945? Emr# [id number] 10/20/22 14:58 - Phone Note by CHARLOTTE Villanueva Acct Num: [id number] : 1945? Patient Age: 77 VNA to add OT (occupational therapy) VNA to add prison for douglas catheter management, monthly douglas catheter change, with 16 latvian 10mm balloon (may change PRN complications), VNA to flush with 30-60cc normal saline of sterile water for increased sediment or blockage. Initialized on 10/20/22 14:58 - END OF NOTE Coding Level of Care Code Tele Est Pt Level 1 (79325) Diagnoses Status post lumbar and lumbosacral fusion by anterior technique Z98.1
== END ==
PROVIDERS: PCP Internal Medicine; Visit Provider Physician Assistant
DX: Z98.1 Arthrodesis status (principal)
CPT/HCPCS: 99211

== ENCOUNTER 2022-11-09 13:01 | Outpatient (AMB) | payer MEDICARE, OTHER, SELFPAY ==
--- NOTE | 2022-11-09 13:58 | HO.SPINEOV ---
Intake Intake Visit Reasons: 1st post op Allergies Penicillin Allergy (Mild, Uncoded 10/17/22 06:23) [facility] Assessment & Plan Assessment & Plan (1) Status post lumbar and lumbosacral fusion by anterior technique: Code(s): Z98.1 - Arthrodesis status Plan Lilian is a pleasant 77-year-old female who comes in today for her 1st postop follow-up visit s/p L2-3 oblique lateral lumbar interbody fusion with discectomy & removal L3-4 posterior instrumentation. She had a difficult course initially postoperatively and had trouble ambulating/moving/with pain control. We ordered VNA services for occupational therapy and senior living alongside the initially ordered physical therapy. She reports that these services were extremely helpful and allowed her to begin ambulating / moving and returning to her regular ADLs. She reports that her symptoms have continued to improve since her surgery. She states that her legs and knees feel less weak, and reports she only has some numbness in her left SI joint region (no radiation). She reports some low-grade pain (1/10) at baseline and reports that her pain aggravates up to a 4/10 with increased movement. She does endorse good relief of pain with ibuprofen/Tylenol/tramadol 25 mg. She reports no use of other ordered medications. She is able to ambulate well, despite her torn meniscus of the right knee which she states to be repaired by an orthopedic surgeon in December. She will be scheduled for a follow-up appointment in 6 weeks. At which time she will get x-ray imaging. Total amount of time spent in this visit was 30 minutes in discussion of symptoms, postoperative expectations, healing timeframe and subsequent plan of care Roni Aguilar MD,PhD [facility] Coding Level of Care Code Est Pt Level 4 (57363) Diagnoses Status post lumbar and lumbosacral fusion by anterior technique Z98.1
== END 2022-11-09 13:49 | disposition home or self-care (01) ==
PROVIDERS: PCP Internal Medicine; Visit Provider Neurological Surgery
DX: Z98.1 Arthrodesis status (principal)
CPT/HCPCS: 99214

== ENCOUNTER → 2022-11-09 13:01 | Outpatient (BNVA) | payer MEDICARE, OTHER, SELFPAY | PROVIDERS: PCP Internal Medicine; Visit Provider Neurological Surgery | DX: Z47.89 Encounter for other orthopedic aftercare (principal); Z98.1 Arthrodesis status | CPT/HCPCS: 99212 ==

== ENCOUNTER 2022-12-07 13:06 | Outpatient (AMB) | payer MEDICARE, OTHER, SELFPAY ==
--- NOTE | 2022-12-07 13:15 | MHC.OFFVIS ---
Intake Intake Visit Reasons: OV-Right knee pain-F/U Intake Note: Lilian 77?yr old female presents today as a new patient for a right knee evaluation. States she sat in a chair that put pressure on her knee on February. Reports she felt pain when she stood up and her pain increased when she applied pressure on knee.? The patient denies any pain in her right knee prior to that twisting injury.? She has done physical therapy for 12 weeks over the last 6 months which aggravated her pain.? She has also had multiple injections in the past.? The most recent injection gave her minimal relief.? She has tried Tylenol and anti-inflammatory medicines which gave her only mild relief.? She states that her right knee will give out several times per day.? Of note, the patient did undergo her 2nd low back surgery on 10/17/2022. She reports mild intermittent discomfort in her low back. She denies any fevers or chills. Allergies Penicillin Allergy (Mild, Uncoded 12/07/22 13:32) Hives Medication List - Last Reconciled 12/07/22 by Dhaval Huddleston MD alirocumab (Praluent Pen) 75 mg subcut Q2W amlodipine 10 mg PO DAILY aspirin 81 mg PO 4XW atorvastatin 10 mg PO BEDTIME cholecalciferol (vitamin D3) (Vitamin D3) 50 mcg PO DAILY diphenoxylate-atropine 2.5-0.025 mg 1 tab PO DAILY duloxetine (Cymbalta) 20 mg PO BID enalapril maleate 20 mg PO BID gabapentin 300 mg PO TID gabapentin 300 mg PO BID hydrocortisone-iodoquinol 1-1 % 1 appl topical DAILY PRN lorazepam 0.5 mg PO DAILY PRN metoprolol succinate ER 25 mg PO BEDTIME multivitamin 1 tab PO DAILY oxycodone 5 mg PO Q6H PRN vitamin A-vitamin C-vit E-min 1 tab PO 4XW PFSH Medical History Arthritis Asthma Cough COVID-19 Depression Diarrhea Elevated cholesterol GERD (gastroesophageal reflux disease) HTN (hypertension) PVD (peripheral vascular disease) Renal artery stenosis Rheumatoid arthritis Spinal stenosis Wet senile macular degeneration Surgical History History of carotid endarterectomy History of eyelid surgery History of facelift History of hysterectomy History of lumbar fusion Hx of breast reduction, elective Hx of cholecystectomy Social History Household Members: None Housing: House Are you a primary district manager primary care sales to a significant other at home: No Do you presently have visiting nurse or other home services: No Patient Tobacco Use Status: Never used Tobacco service: No Physical Exam Const Other: Well-nourished well-developed very friendly female awake alert and oriented x3 in no acute distress Lungs clear to auscultation bilaterally with symmetric expansion Cardiovascular exam regular rate and rhythm Abdominal exam is soft nontender nondistended Extrem Other: Bilateral lower extremity examination shows good capillary refill, no skin lesions noted, normal sensation light touch Right knee examination shows a minimal effusion, minimal crepitus with range of motion, tenderness along her medial and lateral joint lines, positive Daniele's test, no instability Results Reviewed Results Reviewed: X-rays of the patient's right knee show mild diffuse joint space narrowing, no acute bony abnormalities MRI of the patient's right knee shows mild diffuse degenerative changes as well as tearing of her medial and lateral menisci Assessment & Plan Assessment & Plan (1) Tear of medial meniscus of right knee: Code(s): S83.241A - Other tear of medial meniscus, current injury, right knee, initial encounter Plan Ms. Lovett presents with progressively worsening right knee pain and mechanical symptoms due to tearing of her medial and lateral menisci. I had a lengthy discussion with the patient regarding the treatment options. At this point she has failed continued non operative treatments. The risks and benefits of right knee arthroscopic surgery were discussed at length with the patient. The patient wishes to proceed with surgery. Surgery will most likely involve right knee diagnostic arthroscopy with partial medial and lateral meniscectomies. I will have my office contact the patient to pick a surgery date. The patient will follow-up as instructed. Feel free to call me at any time should questions regarding her orthopedic management arise. I spent 22 minutes in reviewing the patient's records and imaging studies, seeing the patient and documenting in the medical record. Coding Level of Care Code Est Pt Level 2 (46018) Diagnoses Tear of medial meniscus of right knee S83.241A
== END 2022-12-07 13:48 | disposition home or self-care (01) ==
PROVIDERS: PCP Internal Medicine; Visit Provider Orthopaedic Surgery
DX: S83.241A Other tear of medial meniscus, current injury, right knee, initial encounter (principal)
CPT/HCPCS: 99212

== ENCOUNTER → 2022-12-07 13:06 | Outpatient (BNVA) | payer MEDICARE, OTHER, SELFPAY | PROVIDERS: PCP Internal Medicine; Visit Provider Orthopaedic Surgery | DX: S83.241A Other tear of medial meniscus, current injury, right knee, initial encounter (principal) | CPT/HCPCS: 99212 ==

== ENCOUNTER 2022-12-21 15:12 | Outpatient (REF) | payer MEDICARE, OTHER, SELFPAY ==
--- NOTE | ~2022-12-21 | XR_ITS ---
EXAMINATION: XR LUMBOSACRAL SPINE CLINICAL INFORMATION: Arthrodesis. COMPARISON: None available. TECHNIQUE: AP and lateral views of the lumbosacral spine. FINDINGS: Posterior stabilization hardware and intervertebral disc hardware at L2-L3. No hardware fracture. No perihardware lucency to suggest loosening or infection. Additional intervertebral disc hardware at L3-L4. No acute fracture or subluxation. The lumbar lordosis is maintained. No loss of vertebral body height. Loss of intervertebral disc height with endplate osteophytic, most prominent at L5-S1. Bilateral facet arthropathy at L4-S1. Atherosclerotic calcifications. XR/XR lumbar spine 2-3V IMPRESSION: 1. Posterior stabilization hardware at L2-L3 without evidence of complication. Additional intervertebral disc hardware at L3-L4. 2. Multilevel degenerative disc disease, most prominent at L5-S1.
== END 2022-12-21 15:13 | disposition home or self-care (01) ==
LOC: HO.HOSX 15:12
PROVIDERS: PCP Internal Medicine; Visit Provider Neurological Surgery
DX: Z98.1 Arthrodesis status (principal)
CPT/HCPCS: 72100

== ENCOUNTER 2022-12-21 15:12 | Outpatient (AMB) | payer MEDICARE, OTHER, SELFPAY ==
--- NOTE | 2022-12-21 15:46 | HO.SPINEOV ---
Intake Intake Visit Reasons: 6 week f/u Intake Note: Ms. Lovett is here for a her 6wk f/u. Allergies Penicillin Allergy (Mild, Uncoded 12/07/22 13:32) Hives Assessment & Plan Assessment & Plan (1) Status post lumbar and lumbosacral fusion by anterior technique: Code(s): Z98.1 - Arthrodesis status Plan Dear colleague, On 12/21/2022, I saw for postoperative visit Lilian Lovett. She underwent an L3-4 minimally invasive lumbar fusion through Kambin's triangle. She is doing very well. She has returned to full activities with bending and twisting and I told her to avoid over exertion of her lumbar spine. Today's x-ray showed good position of the interbody device and posterior instrumentation. She will return to my clinic as needed. Thank you for letting me take care of your patient. Miguel Aguilar MD, PhD Spine Fellowship Trained Neurosurgeon Director, [facility] Orders: Orders XR lumbar spine 2-3V Today Z98.1 - Arthrodesis status Coding Level of Care Code Global (70723) Diagnoses Status post lumbar and lumbosacral fusion by anterior technique Z98.1
== END 2022-12-21 16:01 | disposition home or self-care (01) ==
PROVIDERS: PCP Internal Medicine; Visit Provider Neurological Surgery
DX: Z98.1 Arthrodesis status (principal)
CPT/HCPCS: 99024

== ENCOUNTER 2023-01-20 10:40 | Day surgery (SDC) | payer MEDICARE, OTHER, SELFPAY ==
[2023-01-18 09:53] VITALS: BMI 30.2
--- NOTE | 2023-01-19 13:00 | HO.ANESPROP2 ---
Documented by User: Arelis Linares NP 01/19/23 13:01 HPI - Anesthesia Eval Consult details Narrative: 77yo F for Right Knee Arthroscopy,with partial medial meniscectomy,Lateral meciscectomy PMFSH Active Problems Active Problems: All Active Problems (Updated 10/13/22 @ 14:36 by Dhaval Huddleston MD) Status post lumbar and lumbosacral fusion by anterior technique (Acute) Tear of medial meniscus of right knee (Acute) Right knee pain (Acute) Knee pain (Acute) Lumbar stenosis (Acute) Past Medical History Medical History Spinal stenosis Cough Asthma Wet senile macular degeneration PVD (peripheral vascular disease) Renal artery stenosis Diarrhea COVID-19 Rheumatoid arthritis Arthritis GERD (gastroesophageal reflux disease) Depression HTN (hypertension) Elevated cholesterol Family History Family history of problems with anesthesia: No Surgical History Surgical History (Updated 01/18/23 @ 09:43 by Lizeth King RN) History of eyelid surgery History of facelift Hx of breast reduction, elective History of carotid endarterectomy History of hysterectomy Hx of cholecystectomy History of lumbar fusion History of Problems with Anesthesia: No (distant hx of PONV) Social History Social History Household Members: None Housing: House Are you a primary patient care secretary to a significant other at home: No Do you presently have visiting nurse or other home services: No Patient Tobacco Use Status: Never used Tobacco Have you been hit, kicked, punched, or otherwise hurt by someone within the past year? If so, by whom?: No Are you DNR?: No Advance Directives: No Advance Directives Information Provided: Yes (brochure mailed) Advance Directives on File: No Recently lost weight without trying: No Eating poorly because of decreased appetite: No Nutrition Risks: No Nutritional Risk service: No Meds Allergies Allergy/AdvReac Type Severity Reaction Status Date / Time Penicillins Allergy Mild Hives Verified 01/20/23 10:48 Active Medications: Current Medications Clindamycin Phosphate (Cleocin) 900 mg in 50 mls @ 50 mls/hr IV PREOP ONE Stop: 01/20/23 04:21 Home Medications Medication Instructions Recorded Confirmed Last Taken Type alirocumab 75 mg/mL subcutaneous 75 mg subcut Q2W 08/09/22 01/18/23 10/03/22 History pen injector (Praluent Pen) amlodipine 10 mg tablet 10 mg PO DAILY 08/09/22 01/20/23 01/20/23 History diphenoxylate-atropine 2.5 1 tab PO DAILY 08/09/22 01/20/23 01/20/23 History mg-0.025 mg tablet enalapril maleate 20 mg tablet 20 mg PO BID 08/09/22 01/18/23 10/17/22 History 10 mg hydrocortisone 1 %-iodoquinol 1 % 1 appl topical DAILY PRN Itching 08/09/22 01/18/23 10/16/22 History topical cream lorazepam 0.5 mg tablet 0.5 mg PO DAILY PRN Anxiety 08/09/22 01/20/23 01/20/23 History metoprolol succinate 25 mg 25 mg PO BEDTIME 08/09/22 01/18/23 10/16/22 History tablet,extended release 24 hr aspirin 81 mg tablet,delayed 81 mg PO 4XW 09/30/22 01/18/23 10/10/22 History release atorvastatin 10 mg tablet 10 mg PO BEDTIME 09/30/22 01/18/23 10/16/22 History multivitamin 1 tab PO DAILY 09/30/22 01/18/23 10/15/22 History vitamin A-vitamin C-vit E-min 1 tab PO 4XW 09/30/22 01/18/23 10/14/22 History tablet cholecalciferol (vitamin D3) 50 50 mcg PO DAILY 10/03/22 01/18/23 10/14/22 History mcg (2,000 unit) capsule (Vitamin D3) fluoxetine 10 mg capsule 10 mg PO DAILY 01/18/23 01/18/23 Unknown History Exam Exam Date and Time: January 19, 2023 1300 Height,Weight and Vital Signs: Height 5 ft 4 in Weight 79.832 kg Assessment and Plan Assessment Anesthesia Assessment: Chart Reviewed Final Anesthetic Review Family History of Problems with Anesthesia: No History of Problems with Anesthesia: No (distant hx of PONV) Documented by User: Frank Pedro MD 01/20/23 10:54 [facility] Past Medical History Medical History Spinal stenosis Cough Asthma Wet senile macular degeneration PVD (peripheral vascular disease) Renal artery stenosis Diarrhea COVID-19 Rheumatoid arthritis Arthritis GERD (gastroesophageal reflux disease) Depression HTN (hypertension) Elevated cholesterol Surgical History Surgical History (Updated 01/18/23 @ 09:43 by Lizeth King RN) History of eyelid surgery History of facelift Hx of breast reduction, elective History of carotid endarterectomy History of hysterectomy Hx of cholecystectomy History of lumbar fusion Social History Social History Household Members: None Housing: House Are you a primary patient care secretary to a significant other at home: No Do you presently have visiting nurse or other home services: No Patient Tobacco Use Status: Never used Tobacco Have you been hit, kicked, punched, or otherwise hurt by someone within the past year? If so, by whom?: No Are you DNR?: No Advance Directives: No Advance Directives Information Provided: Yes (brochure mailed) Advance Directives on File: No Recently lost weight without trying: No Eating poorly because of decreased appetite: No Nutrition Risks: No Nutritional Risk service: No Meds Allergies Allergy/AdvReac Type Severity Reaction Status Date / Time Penicillins Allergy Mild Hives Verified 01/20/23 10:48 Home Medications Medication Instructions Recorded Confirmed Last Taken Type alirocumab 75 mg/mL subcutaneous 75 mg subcut Q2W 08/09/22 01/18/23 10/03/22 History pen injector (Praluent Pen) amlodipine 10 mg tablet 10 mg PO DAILY 08/09/22 01/20/23 01/20/23 History diphenoxylate-atropine 2.5 1 tab PO DAILY 08/09/22 01/20/23 01/20/23 History mg-0.025 mg tablet enalapril maleate 20 mg tablet 20 mg PO BID 08/09/22 01/18/23 10/17/22 History 10 mg hydrocortisone 1 %-iodoquinol 1 % 1 appl topical DAILY PRN Itching 08/09/22 01/18/23 10/16/22 History topical cream lorazepam 0.5 mg tablet 0.5 mg PO DAILY PRN Anxiety 08/09/22 01/20/23 01/20/23 History metoprolol succinate 25 mg 25 mg PO BEDTIME 08/09/22 01/18/23 10/16/22 History tablet,extended release 24 hr aspirin 81 mg tablet,delayed 81 mg PO 4XW 09/30/22 01/18/23 10/10/22 History release atorvastatin 10 mg tablet 10 mg PO BEDTIME 09/30/22 01/18/23 10/16/22 History multivitamin 1 tab PO DAILY 09/30/22 01/18/23 10/15/22 History vitamin A-vitamin C-vit E-min 1 tab PO 4XW 09/30/22 01/18/23 10/14/22 History tablet cholecalciferol (vitamin D3) 50 50 mcg PO DAILY 10/03/22 01/18/23 10/14/22 History mcg (2,000 unit) capsule (Vitamin D3) fluoxetine 10 mg capsule 10 mg PO DAILY 01/18/23 01/18/23 Unknown History Exam Airway Mallampati Class: II TM Dist: <=3cm Neck ROM: Limited Heart: rrr Lungs: cta Assessment and Plan Final Anesthetic Review NPO: Yes ASA Class: III Final Preanesthetic Review: No Changes in Pt Med Stat, Meds/Allgs Chart Reviewed, Consent Obtained/Reviewed and Anes Risks/Benef Reviewed Patient Risk: Intermediate Procedure Risk: Low Anesthetic Plan Anesthetic Plan: GA and Agree w/ Assess. and Plan Disposition: Standard PACU
[2023-01-20] VITALS (7 sets, daily range): BP systolic 97–130; BP diastolic 43–64; PULSE 56–68; RESP 16; TEMP 36.3–36.8; O2SAT 95–100
[2023-01-20] MEDS: Lactated Ringers 1,000 ML 100 ML IVCONT (11:13)
--- NOTE | 2023-01-20 13:00 | P.BOP_ITS ---
Brief Operative Note Date of Service: 01/20/23 Pre-op diagnosis: Right knee medial meniscus tear, right knee lateral meniscus tear, right knee degenerative joint disease, right knee plica syndrome Post-op diagnosis: same Procedure: Right knee arthroscopy with arthroscopic partial medial and lateral meniscectomies, chondroplasty of the undersurface of the patella as well as the medial femoral condyle, plica excision Surgeon: Dhaval Huddleston MD Anesthesia: GLMA Was an Packing Machine Feeder used for this Procedure?: No Estimated blood loss (mL): 10 Pathology: none sent Condition: stable Disposition: PACU
--- NOTE | 2023-01-20 13:01 | W.PM.OPN ---
Operative Note Operative Note Date of Service: 01/20/23 Narrative: After the patient was identified as Lilian Lovett and their right knee was initialed by myself they were brought to the operating room where general anesthesia was induced by the anesthesiologist in routine fashion. Because of the patient's allergy to penicillins she was given 900 mg of IV clindamycin for infection prophylaxis. A formal time-out was completed. The patient's right lower extremity was prepped and draped in sterile fashion. Marcaine with epinephrine was injected into the planned incision sites as well as their left knee joint. A # 11 scalpel blade was used to make an anterolateral portal 1 cm proximal to the joint line and 1 cm lateral to the patellar tendon. Blunt trocar technique was used into the suprapatellar pouch with the knee in extension. Diagnostic arthroscopy showed multiple bands of thickened plica which would be excised at the end of the procedure. There were no loose bodies or abnormalities found in either the medial or lateral gutters. There were diffuse grade 2 degenerative changes of the undersurface of the patella as well as grade 2 degenerative changes of the trochlear groove. The patient's knee was flexed to 45 degrees and a valgus force was placed upon it. The medial compartment was entered. An anteromedial portal was made 1 cm proximal to the joint line and 1 cm medial to the patellar tendon. Probing of the medial meniscus showed a radial tear of the posterior horn. A partial medial meniscectomy was performed using the arthroscopic shaver. Following the partial meniscectomy the remainder of the meniscus tissue was stable. There were diffuse grades 2 and 3 degenerative changes of the medial femoral condyle as well as diffuse grade 2 degenerative changes of the medial tibial plateau. The articular surface of the medial femoral condyle was made smooth using the arthroscopic shaver. The articular surface of the medial tibial plateau was already smooth so no chondroplasty was indicated. The patient's knee was then placed into a neutral position. There was no injury to the anterior cruciate ligament. The patient's knee was then placed into the figure of 4 position and the lateral compartment was entered. There were minimal degenerative changes of the lateral femoral condyle and lateral tibial plateau. There was a radial tear of the anterior horn of the lateral meniscus. A partial lateral meniscectomy was performed using the arthroscopic shaver. Following the partial meniscectomy the remainder of the meniscus tissue was stable. The patient's knee was once again brought into extension and the suprapatellar pouch was entered. The arthroscopic shaver and the ArthroCare Wand were used to excise the thickened bands of plica. The undersurface of the patella was then made smooth using the arthroscopic shaver. The articular surface of the trochlear groove was already smooth so no chondroplasty was indicated. The knee joint was irrigated and then drained. All arthroscopic instruments were removed. The 2 portals were closed with 3-0 nylon interrupted suture. The knee joint was injected with Marcaine. Dry sterile dressing and Edd bandages were placed over the patient's knee. The patient was woken and expand the operating room. They were transferred to the recovery room in stable condition.
[2023-01-20] MEDS: oxyCODONE HCl Immed Release 5 MG TABLET PO (13:26)
== END 2023-01-20 14:47 | disposition home or self-care (01) ==
PROVIDERS: PCP Internal Medicine; Visit Provider Orthopaedic Surgery
PROC: (CPT 29870; principal; 2023-01-20 12:20)
DX: S83.241A Other tear of medial meniscus, current injury, right knee, initial encounter (principal); S83.281A Other tear of lateral meniscus, current injury, right knee, initial encounter; X50.1XXA Overexertion from prolonged static or awkward postures, initial encounter; M17.11 Unilateral primary osteoarthritis, right knee; M67.51 Plica syndrome, right knee; Y93.89 Activity, other specified; Y92.9 Unspecified place or not applicable; M48.00 Spinal stenosis, site unspecified; M06.9 Rheumatoid arthritis, unspecified; I73.9 Peripheral vascular disease, unspecified; I70.1 Atherosclerosis of renal artery; I10 Essential (primary) hypertension; E78.00 Pure hypercholesterolemia, unspecified; Y99.8 Other external cause status; Z79.82 Long term (current) use of aspirin; Z79.899 Other long term (current) drug therapy; Z88.0 Allergy status to penicillin; Z98.890 Other specified postprocedural states
CPT/HCPCS: 29880; J0131; J1100; J1885; J2405; J2795

== ENCOUNTER → 2023-01-20 10:40 | Outpatient (BNV) | payer MEDICARE, OTHER, SELFPAY | PROVIDERS: PCP Internal Medicine; Visit Provider Orthopaedic Surgery | DX: S83.231A Complex tear of medial meniscus, current injury, right knee, initial encounter (principal); S83.271A Complex tear of lateral meniscus, current injury, right knee, initial encounter | CPT/HCPCS: 29880 ==

== ENCOUNTER 2023-02-02 11:29 | Outpatient (AMB) | payer MEDICARE, OTHER, SELFPAY ==
--- NOTE | 2023-02-02 11:55 | MHC.OFFVIS ---
Intake Intake Visit Reasons: Lt Knee 01/20 Intake Note: This is a 77 year old female who presents for a right knee on 01/20/23. She reports her pain is improving. She takes tylenol at times. She denies any fevers or chills. Allergies Penicillins Allergy (Mild, Verified 02/02/23 11:59) Hives Medication List - Last Reconciled 02/02/23 by Richa Strong RN alirocumab (Praluent Pen) 75 mg subcut Q2W amlodipine 10 mg PO DAILY aspirin 81 mg PO 4XW atorvastatin 10 mg PO BEDTIME cholecalciferol (vitamin D3) (Vitamin D3) 50 mcg PO DAILY diphenoxylate-atropine 2.5-0.025 mg 1 tab PO DAILY enalapril maleate 20 mg PO BID fluoxetine 10 mg PO DAILY hydrocortisone-iodoquinol 1-1 % 1 appl topical DAILY PRN lorazepam 0.5 mg PO DAILY PRN metoprolol succinate ER 25 mg PO BEDTIME multivitamin 1 tab PO DAILY oxycodone 5 mg PO Q6H PRN vitamin A-vitamin C-vit E-min 1 tab PO 4XW PFSH Medical History Spinal stenosis Cough Asthma Wet senile macular degeneration PVD (peripheral vascular disease) Renal artery stenosis Diarrhea COVID-19 Rheumatoid arthritis Arthritis GERD (gastroesophageal reflux disease) Depression HTN (hypertension) Elevated cholesterol Surgical History (Updated 01/18/23 @ 09:43 by Lizeth King RN) History of eyelid surgery History of facelift Hx of breast reduction, elective History of carotid endarterectomy History of hysterectomy Hx of cholecystectomy History of lumbar fusion Social History Household Members: None Housing: House Are you a primary rn progressive care unit to a significant other at home: No Do you presently have visiting nurse or other home services: No Patient Tobacco Use Status: Never used Tobacco service: No Physical Exam Extrem Other: Physical examination of the patient's right knee shows that the surgical incisions are healing well, no erythema, minimal crepitus with range of motion, minimal discomfort with range of motion Assessment & Plan Assessment & Plan (1) Right knee pain: Code(s): M25.561 - Pain in right knee Plan Ms. Lovett is doing well after undergoing right knee arthroscopic surgery on 01/18/2023. Her sutures were removed and Steri-Strips placed over her incisions. She will gradually progress to activities as tolerated. She will contact me prior to her follow-up appointment in 6-8 weeks should any questions or concerns arise. Feel free to call me at any time should questions regarding her orthopedic management arise. Coding Level of Care Code Global (58052) Diagnoses Right knee pain M25.561
== END 2023-02-02 12:19 | disposition home or self-care (01) ==
PROVIDERS: PCP Internal Medicine; Visit Provider Orthopaedic Surgery
DX: M25.561 Pain in right knee (principal)
CPT/HCPCS: 99024

== ENCOUNTER → 2023-02-02 11:29 | Outpatient (BNVA) | payer MEDICARE, OTHER, SELFPAY | PROVIDERS: PCP Internal Medicine; Visit Provider Orthopaedic Surgery ==

== ENCOUNTER 2023-03-16 11:23 | Outpatient (AMB) | payer MEDICARE, OTHER, SELFPAY ==
--- NOTE | 2023-03-16 11:26 | A.OFFVIS_ITS ---
Intake Intake Visit Reasons: PO-Rt Knee 01/20-follow up Intake Note: The patient presents with complaints of mild intermittent discomfort in her right knee after undergoing right knee arthroscopic surgery on 01/23/2023. She denies any fevers or chills. She continues with her gentle stretching program. Allergies Penicillins Allergy (Mild, Verified 03/16/23 11:27) Hives Medication List - Last Reconciled 03/16/23 by Dhaval Huddleston MD alirocumab (Praluent Pen) 75 mg subcut Q2W amlodipine 10 mg PO DAILY aspirin 81 mg PO 4XW atorvastatin 10 mg PO BEDTIME cholecalciferol (vitamin D3) (Vitamin D3) 50 mcg PO DAILY diphenoxylate-atropine 2.5-0.025 mg 1 tab PO DAILY enalapril maleate 20 mg PO BID fluoxetine 10 mg PO DAILY hydrocortisone-iodoquinol 1-1 % 1 appl topical DAILY PRN lorazepam 0.5 mg PO DAILY PRN metoprolol succinate ER 25 mg PO BEDTIME multivitamin 1 tab PO DAILY vitamin A-vitamin C-vit E-min 1 tab PO 4XW PFSH Medical History Spinal stenosis Cough Asthma Wet senile macular degeneration PVD (peripheral vascular disease) Renal artery stenosis Diarrhea COVID-19 Rheumatoid arthritis Arthritis GERD (gastroesophageal reflux disease) Depression HTN (hypertension) Elevated cholesterol Surgical History (Updated 03/16/23 @ 11:31 by Kassandra Chauhan MA) S/P right knee arthroscopy (01/20/23) History of eyelid surgery History of facelift Hx of breast reduction, elective History of carotid endarterectomy History of hysterectomy Hx of cholecystectomy History of lumbar fusion Social History (Updated 03/16/23 @ 11:28 by Kassandra Chauhan MA) Household Members: None Housing: House Are you a primary career development counselor to a significant other at home: No Do you presently have visiting nurse or other home services: No Alcohol intake: current Alcohol intake frequency: a few times a week Alcohol type: wine Patient Tobacco Use Status: Never used Tobacco service: No Physical Exam Extrem Other: Right knee examination shows that the surgical incisions are well healed, no erythema, minimal discomfort with range of motion, minimal crepitus with range of motion Assessment & Plan Assessment & Plan (1) Right knee pain: Code(s): M25.561 - Pain in right knee Plan Ms. Lovett is doing well after undergoing right knee arthroscopic surgery on 01/20/2023. She will continue with her home stretching program. We will hold off on formal physical therapy for now. She will contact me prior to her fo llow-up appointment in 2 months should any questions or concerns arise. Feel free to call me at any time should questions regarding her orthopedic management arise. Coding Level of Care Code Global (79982) Diagnoses Right knee pain M25.561
== END 2023-03-16 11:57 | disposition home or self-care (01) ==
PROVIDERS: PCP Internal Medicine; Visit Provider Orthopaedic Surgery
DX: M25.561 Pain in right knee (principal)
CPT/HCPCS: 99024

== ENCOUNTER → 2023-03-16 11:23 | Outpatient (BNVA) | payer MEDICARE, OTHER, SELFPAY | PROVIDERS: PCP Internal Medicine; Visit Provider Orthopaedic Surgery | DX: M25.561 Pain in right knee (principal) | CPT/HCPCS: 99212 ==

== ENCOUNTER 2023-05-18 11:28 | Outpatient (AMB) | payer MEDICARE, OTHER, SELFPAY ==
--- NOTE | 2023-05-18 11:30 | A.OFFVIS_ITS ---
Intake Vital Signs 05/18/23 11:32 Height 5 ft 4 in Weight 168 lb BMI 28.8 Intake Visit Reasons: OV- Rt Knee 01/20-follow up Intake Note: Lilian is a 78 year old female who presents for her post operative appointment s/p Right knee on . Patient reports it is feeling good she has some discomfort but is better then her last visit. She does report intermittent weakness and stiffness in her leg. She would like to go to formal physical therapy. Allergies Penicillins Allergy (Mild, Verified 05/18/23 11:33) Hives Medication List - Last Reconciled 05/18/23 by Dhaval Huddleston MD alirocumab (Praluent Pen) 75 mg subcut Q2W amlodipine 10 mg PO DAILY aspirin 81 mg PO 4XW atorvastatin 10 mg PO BEDTIME cholecalciferol (vitamin D3) (Vitamin D3) 50 mcg PO DAILY diphenoxylate-atropine 2.5-0.025 mg 1 tab PO DAILY enalapril maleate 20 mg PO BID fluoxetine 10 mg PO DAILY hydrocortisone-iodoquinol 1-1 % 1 appl topical DAILY PRN lorazepam 0.5 mg PO DAILY PRN metoprolol succinate ER 25 mg PO BEDTIME multivitamin 1 tab PO DAILY vitamin A-vitamin C-vit E-min 1 tab PO 4XW [facility] Medical History (Updated 05/18/23 @ 11:54 by Dhaval Huddleston MD) Spinal stenosis Cough Asthma Wet senile macular degeneration PVD (peripheral vascular disease) Renal artery stenosis Diarrhea COVID-19 Rheumatoid arthritis Arthritis GERD (gastroesophageal reflux disease) Depression HTN (hypertension) Elevated cholesterol Surgical History (Updated 03/16/23 @ 11:31 by Kassandra Chauhan MA) S/P right knee arthroscopy (01/20/23) History of eyelid surgery History of facelift Hx of breast reduction, elective History of carotid endarterectomy History of hysterectomy Hx of cholecystectomy History of lumbar fusion Social History (Updated 03/16/23 @ 11:28 by Kassandra Chauhan MA) Household Members: None Housing: House Are you a primary child care giver to a significant other at home: No Do you presently have visiting nurse or other home services: No Alcohol intake: current Alcohol intake frequency: a few times a week Alcohol type: wine Patient Tobacco Use Status: Never used Tobacco service: No Physical Exam Vital Signs: BMI result Body Mass Index 28.8 Const Other: Well-nourished well-developed very friendly female awake alert and oriented x3 in no acute distress Extrem Other: Bilateral lower extremity examination shows good capillary refill, no skin lesions noted, normal sensation light touch Right knee examination shows that the surgical incisions are well healed, no erythema, range of motion from -3 degrees to 115 degrees, minimal crepitus with range of motion, no instability Assessment & Plan Assessment & Plan (1) Arthritis of right knee: Code(s): M17.11 - Unilateral primary osteoarthritis, right knee Plan Ms. Lovett continues to do well after undergoing right knee arthroscopic surgery on 01/18/2023. I did give her a prescription to go to formal physical therapy for range of motion and gentle strengthening exercises. Activity modifications were also discussed at length with the patient. She will contact me prior to her follow-up appointment in 3 months should any questions or concerns arise. Feel free to call me at any time should questions regarding management arise. I spent 19 minutes in reviewing the patient's records and imaging studies, seeing the patient and documenting in the medical record. Orders: Orders PT Evaluation and Treatment Today M17.11 - Unilateral primary osteoarthritis, right knee Coding Level of Care Code Est Pt Level 2 (92648) Diagnoses Arthritis of right knee M17.11
[2023-05-18 11:32] VITALS: BMI 28.8
== END 2023-05-18 12:29 | disposition home or self-care (01) ==
PROVIDERS: PCP Internal Medicine; Visit Provider Orthopaedic Surgery
DX: M17.11 Unilateral primary osteoarthritis, right knee (principal)
CPT/HCPCS: 99213

== ENCOUNTER → 2023-05-18 11:28 | Outpatient (BNVA) | payer MEDICARE, OTHER, SELFPAY | PROVIDERS: PCP Internal Medicine; Visit Provider Orthopaedic Surgery | DX: M17.11 Unilateral primary osteoarthritis, right knee (principal) | CPT/HCPCS: 99212 ==